=== PATIENT | female | born 1995 | race Caucasian/White ===

== ENCOUNTER 2020-01-23 13:24 | Emergency (ER) | payer MEDICARE ==
[~2020-01-23] VITALS: Ht 152.4 cm; Wt 68.2 kg
[2020-01-23 13:28] VITALS: Ht 152.4 cm; Wt 68.2 kg
[2020-01-23 14:11] LABS: ANION GAP 10.3 mmol/L (8-16); CALCIUM 9.1 mg/dL (8.5-10.1); CARBON DIOXIDE 27.3 mmol/L (21.0-32.0); CREATININE - SERUM 1.1 mg/dL (0.6-1.3); POTASSIUM - SERUM 3.6 mmol/L (3.5-5.1)
[2020-01-23 14:17] LABS: HCG SERUM POSITIVE (NEGATIVE)
[2020-01-23 14:17] LABS: ALBUMIN 3.7 g/dL (3.4-5.0); BILIRUBIN - TOTAL 0.21 mg/dL (0.2-1.3)
[2020-01-23 14:18] LABS: BASOPHILS 0.1 % (0-2); EOSINOPHILS 1.5 % (0-7); HEMATOCRIT 43.6 % (36.0-48.0); HEMOGLOBIN 14.9 g/dL (12-16); IMMATURE GRANULOCYTES 0.7 % (0-5); LYMPHOCYTES 15.8 % (15-50); MCH 30.5 pg (26.0-34.0); MCHC 34.2 g/dL (31.0-37.0); MCV 89.2 fL (80.0-100.0); MEAN PLATELET VOLUME 9.2 fL (7.4-10.4); MONOCYTES 5.8 % (2-11); NEUTROPHILS 76.1 % (40-80); PLATELET COUNT 338 10x3/uL (130-400); RBC 4.89 10x6/uL (4.00-5.40); RDW 12.9 % (11.5-14.5); WBC 14.5 10x3/uL (4.8-10.8)
[2020-01-23 14:40] LABS: INR 1.03 (0.85-1.17); PROTIME 13.5 SECONDS (11.6-15.0)
[2020-01-23 15:10] LABS: UDS - AMPHET POSITIVE QUAL (NEGATIVE); UDS - BARB NEGATIVE QUAL (NEGATIVE); UDS - BENZO POSITIVE QUAL (NEGATIVE); UDS - COCAINE NEGATIVE QUAL (NEGATIVE); UDS - OPIATE NEGATIVE QUAL (NEGATIVE); UDS - PCP NEGATIVE QUAL (NEGATIVE); UDS - THC NEGATIVE QUAL (NEGATIVE)
[2020-01-23 15:14] LABS: BILIRUBIN NEGATIVE (NEGATIVE); GLUCOSE NEGATIVE (NEGATIVE); KETONE NEGATIVE (NEGATIVE); NITRITE NEGATIVE (NEGATIVE); SPECIFIC GRAVITY 1.025 (1.005-1.020); UROBILINOGEN NORMAL (NORMAL)
[2020-01-23 15:16] LABS: BACTERIA MANY /hpf (NEGATIVE); EPITHELIAL CELLS 0-5 /hpf (0-5); RED CELLS - URINE 0-5 /hpf (0-5)
[2020-01-23] MEDS ORDERED: MACROBID100 MG PO (16:03)
[2020-01-23 16:30] VITALS: BP 133/72
== END 2020-01-23 16:43 | disposition home or self-care (01) ==
LOC: D.ER 13:24
PROVIDERS: Family Medicine
DX: O23.40 Unspecified infection of urinary tract in pregnancy, unspecified trimester (principal); O99.320 Drug use complicating pregnancy, unspecified trimester; F19.90 Other psychoactive substance use, unspecified, uncomplicated; F15.99 Other stimulant use, unspecified with unspecified stimulant-induced disorder; Z3A.00 Weeks of gestation of pregnancy not specified; V89.2XXA Person injured in unspecified motor-vehicle accident, traffic, initial encounter; Y93.9 Activity, unspecified; Y92.9 Unspecified place or not applicable